=== PATIENT | female | born 1955 | race Caucasian/White ===

== ENCOUNTER 2020-07-21 10:04 | Outpatient (REF) | payer OTHER, SELFPAY | END 2020-07-21 10:05 | disposition home or self-care (01) | LOC: HO.WFDLDS 10:04 | PROVIDERS: PCP Internal Medicine; Visit Provider Internal Medicine | DX: Z20.822 Contact with and (suspected) exposure to COVID-19 (principal) | CPT/HCPCS: 36415; C9803; U0003; U0005 ==

== ENCOUNTER 2024-03-09 13:09 | Outpatient (AMB) | payer OTHER, SELFPAY ==
--- NOTE | 2024-03-09 13:02 | A.OFFPC_ITS ---
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 Required: No Allergies Sulfa (Sulfonamide Antibiotics) Allergy (Unknown, Verified 03/09/24 13:02) Unknown contrast dye Allergy (Mild, Uncoded 03/09/24 13:15) Hives Tobacco use date assessed: 03/09/24 Fall risk assessment: No Falls in past year Last assessed Fall Risk: 03/09/24 Dental Screening Dental Screen Date: 03/09/24 Did you have a dental visit in the last 12 months?: Yes Did you have a dental problem in the last 6 months where you did not have access to dental care?: No Was dental information given to patient?: Patient has dentist HPI HPI Comments History of Present Illness Details 68 year old female with a past medical h istory of lichen sclerosis, hyperlipidemia, PARUL, insomnia, seasonal allergies presenting for follow up CV: On pravastatin 40mg daily. Denies chest pain, dizziness. PARUL: continues cpap. Appt in April-[facility] seasonal allergies: On javi as needed Insomnia: on trazodone, ambien as needed. Had marital therapist. Tried lunesta in the past Sees [facility]d-appt next month. Dr Mayra Hobbs: scheduled Mar 2024 colonoscopy 2020 q3 years [facility]-she will call them she thinks they may have changed it to 5 years. ROS CONSTITUTIONAL: Denies weight loss, fever and chills. HEENT: Denies changes in vision and hearing. RESPIRATORY: Denies SOB and cough. CV: Denies palpitations and CP GI: Denies abdominal pain, nausea, vomiting and diarrhea. : Denies dysuria and urinary frequency. MSK: Denies new myalgia and joint pain. SKIN: Denies rash and pruritus. NEUROLOGICAL: Denies headache PSYCHIATRIC: Denies recent changes in mood. PHYSICAL EXAM: GENERAL: Alert and oriented x 3. NAD EYES: EOMI. Anicteric. HENT: Moist mucous membranes. No scleral icterus. No cervical lymphadenopathy. LUNGS: Clear to auscultation bilaterally. CARDIOVASCULAR: Regular rate and rhythm. No murmur. No JVD. ABDOMEN: Soft, non-tender +bs EXTREMITIES: No edema. Non-tender. SKIN: No rashes or lesions. Warm. NEUROLOGIC: No focal neurological deficits. CN II-XII grossly intact PSYCHIATRIC: Cooperative. Appropriate mood and affect [facility] Medical History Spasm of muscle Seasonal allergies PARUL (obstructive sleep apnea) Lichen sclerosus Insomnia Hyperlipidemia Surgical History H/O laparoscopy Hx of colonoscopy Family History Mother Autoimmune disease Heart attack HTN (hypertension) High cholesterol Cancer of skin Sister Back pain Rheumatoid arthritis Other Spinal stenosis Social History Housing: House Patient Tobacco Use Status: Never used Tobacco e-Cigarette/Vaping Use: Never Used Second Hand Smoke Exposure: No service: No Current occupational status: retired Cognitive needs: No Hearing needs: No Vision needs: No Questionnaire Thrive Questionnaire Date Thrive assessed: 03/05/24 I am a: Patient What is your living situation today?: I have a steady place to live Within the past 12 months, did the food you bought not last and you didn't have the money to get more?: Never true Within the past 12 months, did you worry whether your food would run out before you got money to buy more?: Never true Do you have trouble paying for medicines?: No Do you have trouble getting transportation to medical appointments?: No Do you have trouble paying your heating and electricity bill?: No Do you have trouble taking care of your child, family member or friend?: No Do you have trouble with day-to-day activities such as bathing, preparing meals, shopping, managing finances, etc.?: No Are you currently unemployed and looking for a job?: No Are you interested in more education?: No Please select the resources that you would like help with: None Currently or been in a relationship where the following occur: No concerns reported THRIVE Score: 0 AUDIT C Alcohol Use Questionnaire (AUDIT-C) 1. How often do you have a drink containing alcohol?: 2-3 times a week 2. How many drinks containing alcohol do you have on a typical day when you are drinking?: 1 or 2 3. How often do you have six or more drinks on one occasion?: Never Total Score: 3 STAS-7 AMB Questionnaire STAS-7 Date STAS - 7 assessed: 03/09/24 Feeling nervous, anxious, or on edge: 0 = Not at all Not being able to stop or control worryin = Not at all Worrying too much about different things: 0 = Not at all Trouble relaxin = Not at all Being so restless that it is hard to sit still: 0 = Not at all Feeling afraid as if something awful might happen: 0 = Not at all Source: Developed by Drs. Deshaun Harry, Yamilet Jaeger, Umair De Leon and colleagues, with an educational louis from [employer]. STAS-7 Assessment Billing STAS-7 Assessment Tool: STAS-7 Assessment 39076 Physical exam (Primary Care) Vital Signs: Last Vital Signs Pulse 77 03/09/24 13:19 Resp 12 03/09/24 13:19 BP 132/80 03/09/24 13:19 Pulse Ox 99 03/09/24 13:19 Oxygen Delivery Method Room Air 03/09/24 13:19 BMI result Body Mass Index 21.2 Tobacco/Smoking Status: Tobacco use Status Tobacco use date assessed 03/09/24 03/09/24 13:10 Patient Tobacco Use Status Never used Tobacco 03/09/24 13:10 e-Cigarette/Vaping Use Never Used 03/09/24 13:10 Thrive Assessment: Date of Thrive Assessment Date Thrive assessed 03/05/24 03/09/24 13:10 Currently or been in a relationship where the following occur: No concerns reported Coding Level of Care Code Est Pt Level 4 (43004) Diagnoses Primary insomnia F51.01 Insomnia type: primary PARUL (obstructive sleep apnea) G47.33 Mixed hyperlipidemia E78.2 Hyperlipidemia type: mixed hyperlipidemia Additional Codes STAS-7 Assessment Billing - STAS-7 Assessment Tool: STAS-7 Assessment 69690 ([id number]) Assessment & Plan Assessment & Plan (1) Insomnia: Code(s): G47.00 - Insomnia, unspecified Category: Medical Qualifiers: Insomnia type: primary Qualified Code(s): F51.01 - Primary insomnia Plan: controlled. continue current medications (2) PARUL (obstructive sleep apnea): Code(s): G47.33 - Obstructive sleep apnea (adult) (pediatric) Category: Medical Plan: continue cpap (3) Hyperlipidemia: Code(s): E78.5 - Hyperlipidemia, unspecified Category: Medical Qualifiers: Hyperlipidemia type: mixed hyperlipidemia Qualified Code(s): E78.2 - Mixed hyperlipidemia Plan: continue statin therapy Orders: Orders Complete Blood Count Auto Diff Today E78.5 - Hyperlipidemia, unspecified, G47.00 - Insomnia, unspecified, G47.33 - Obstructive sleep apnea (adult) (pediatric), M81.0 - Age-related osteoporosis without current pathological fracture, Z13.0 - Encounter for screening for diseases of the blood and blood- forming organs and certain disorders involving the immune mechanism, Z13.228 - Encounter for screening for other metabolic disorders Comprehensive Met. Panel Today E78.5 - Hyperlipidemia, unspecified, G47.00 - Insomnia, unspecified, G47.33 - Obstructive sleep apnea (adult) (pediatric), M81.0 - Age-related osteoporosis without current pathological fracture, Z13.0 - Encounter for screening for diseases of the blood and blood-forming organs and certain disorders involving the immune mechanism, Z13.228 - Encounter for screening for other metabolic disorders Lipid Panel Today E78.5 - Hyperlipidemia, unspecified, G47.00 - Insomnia, unspecified, G47.33 - Obstructive sleep apnea (adult) (pediatric), M81.0 - Age- related osteoporosis without current pathological fracture, Z13.0 - Encounter for screening for diseases of the blood and blood-forming organs and certain disorders involving the immune mechanism, Z13.228 - Encounter for screening for other metabolic disorders TSH reflex Free T4 Today E78.5 - Hyperlipidemia, unspecified, G47.00 - Insomnia, unspecified, G47.33 - Obstructive sleep apnea (adult) (pediatric), M81.0 - Age-related osteoporosis without current pathological fracture, Z13.0 - Encounter for screening for diseases of the blood and blood-forming organs and certain disorders involving the immune mechanism, Z13.228 - Encounter for screening for other metabolic disorders
[2024-03-09 13:19] VITALS: BP 132/80; PULSE 77; RESP 12; O2SAT 99; BMI 21.2
== END 2024-03-09 13:51 | disposition home or self-care (01) ==
LOC: HO.HMCFM 13:10
PROVIDERS: PCP Internal Medicine; Visit Provider Internal Medicine
DX: F51.01 Primary insomnia (principal); G47.33 Obstructive sleep apnea (adult) (pediatric); E78.2 Mixed hyperlipidemia

== ENCOUNTER → 2024-03-09 13:09 | Outpatient (BNVA) | payer OTHER, SELFPAY | PROVIDERS: PCP Internal Medicine; Visit Provider Internal Medicine | DX: F51.01 Primary insomnia (principal); G47.33 Obstructive sleep apnea (adult) (pediatric); E78.2 Mixed hyperlipidemia; Z99.89 Dependence on other enabling machines and devices | CPT/HCPCS: 96127 ==

== ENCOUNTER 2024-03-09 14:02 | Outpatient (REF) | payer MEDICARE, OTHER, SELFPAY ==
[2024-03-09 17:51] LABS: MANUAL DIFF FLAG NO
[2024-03-09 18:00] LABS: Basophils Percent Auto 0.7 % (0-2); Eosinophils Absolute Auto 0.2 X10*3/uL (0.0-0.4); Eosinophils Percent Auto 3.5 % (0-4); Hematocrit 38.9 % (37.0-47.0); Hemoglobin 13.4 g/dl (12.0-16.0); Imm Gran Abs Auto 0.02 X10*3/uL (0.00-0.03); Imm Gran Pct Auto 0.3 % (0.0-0.4); Lymphocytes Absolute Auto 1.8 X10*3/uL (1.2-4.9); Lymphocytes Percent Auto 30.3 % (20-40); Mean Corpuscular HGB Conc 34.4 g/dl (31.0-35.0); Mean Corpuscular Hemoglobin 31.5 pg (27.0-33.0); Mean Corpuscular Volume 91.5 fL (80.0-98.0); Mean Platelet Volume 8.4 fL (9.4-12.3); Monocytes Absolute Auto 0.5 X10*3/uL (0.1-1.2); Monocytes Percent Auto 8.7 % (2-11); Neutrophils Absolute Auto 3.4 x10*3/uL (2.0-8.3); Neutrophils Percent Auto 56.5 % (45-73); Platelet Count 255 X10*3/uL (160-400); Red Blood Count 4.25 X10*6/uL (4.20-5.50); White Blood Count 6.1 X10*3/uL (4.8-10.8)
[2024-03-09 18:41] LABS: Alanine Aminotransferase 18 U/L (0-31); Albumin Level 4.8 g/dL (3.5-5.0); Alkaline Phosphatase 76 U/L (39-117); Anion Gap 14 (12-20); Aspartate Amino Transferase 28 U/L (5-31); Bilirubin Total 0.5 mg/dL (0.0-1.0); Blood Urea Nitrogen 18 mg/dL (9-16); Calcium 9.5 mg/dL (8.4-10.2); Carbon Dioxide 24 mmol/L (22-29); Chloride 106 mmol/L (96-108); Cholesterol 215 mg/dL (<200); Estimated Glomerular Filt Rate > 60; Glucose Random 95 mg/dL (60-115); HDL Cholesterol 79 mg/dL (>40); LDL Cholesterol Calculated 122 mg/dL (<100); Potassium 4.2 mmol/L (3.3-5.1); Sodium 140 mmol/L (135-145); Total Protein 7.2 g/dL (6.5-8.0); Triglycerides 74 mg/dL (<150)
[2024-03-09 18:42] LABS: TSH reflex Free T4 1.16 uIU/mL (0.32-4.0)
== END 2024-03-09 14:03 | disposition home or self-care (01) ==
LOC: HO.WFDLDS 14:02
PROVIDERS: Visit Provider Internal Medicine
DX: M81.0 Age-related osteoporosis without current pathological fracture (principal); G47.33 Obstructive sleep apnea (adult) (pediatric); E78.5 Hyperlipidemia, unspecified; G47.00 Insomnia, unspecified; Z13.0 Encounter for screening for diseases of the blood and blood-forming organs and certain disorders involving the immune mechanism; Z13.228 Encounter for screening for other metabolic disorders
CPT/HCPCS: 36415; 80053; 80061; 84443; 85025

== ENCOUNTER 2024-09-20 10:14 | Outpatient (AMB) | payer MEDICARE, OTHER, SELFPAY ==
--- NOTE | 2024-09-20 10:30 | AM.OFFVISMDC ---
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: No Allergies Seasonal Allergies Allergy (Severe, Verified 09/20/24 10:31) congestion Sulfa (Sulfonamide Antibiotics) Allergy (Unknown, Verified 03/09/24 13:02) Unknown contrast dye Allergy (Mild, Uncoded 03/09/24 13:15) Hives Medication List - Last Reconciled 09/20/24 by Petra Haddad PA-C albuterol sulfate 90 mcg/actuation inhalation PRN [collagen peptid PO] nystatin-triamcinolone 100,000-0.1 unit/gram-% topical DAILY pravastatin 40 mg PO BEDTIME trazodone 100 mg PO BEDTIME PRN [vitamin d and k .] zolpidem 10 mg PO BEDTIME PRN HPI AWV HPI Details Patient is a 69-year-old female with a significant past medical history of osteoporosis, insomnia, obstructive sleep apnea, hyperlipidemia, Meniere's disease and colon polyps presenting today for a Medicare wellness visit. HEENT: She does request a referral today to ENT as she has noticed an increase of hearing loss in her left ear. She did follow up with an ENT a few years ago for this and was told that it was likely related to her Meniere's disease. She states ultimately they told her she would probably need hearing aids. She would like a consultation with [facility]. No pain or drainage. CV: Blood pressure today in the office is 116/82. Denies any chest pain or shortness on breath. No palpitations or dizziness in remains very active walking 4 miles a day. She is on pravastatin 40 mg and tolerates this well. Psych: Generally uses trazodone nightly but a couple times a month we will need to use Ambien instead of trazodone. She has been on this regimen for years with her PCP. Requests refill today. 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 Hinds, due this year Bone Density: [facility]- osteoporosis-interested in consultation with an paramedic but not sure that she would do anything for this [facility] Medical History Spasm of muscle Seasonal allergies PARUL (obstructive sleep apnea) Lichen sclerosus Insomnia Hyperlipidemia Surgical History H/O laparoscopy Hx of colonoscopy Family History Mother Autoimmune disease Heart attack HTN (hypertension) High cholesterol Cancer of skin Sister Back pain Rheumatoid arthritis Other Spinal stenosis Social History Housing: House Patient Tobacco Use Status: Never used Tobacco e-Cigarette/Vaping Use: Never Used Second Hand Smoke Exposure: No service: No Current occupational status: retired Cognitive needs: No Hearing needs: No Vision needs: No Questionnaire Medicare Wellness Checkup What [age] 65-71 What gender do you identify with?: female During the past 4 weeks, how much have you been bothered by emotional problems such as feeling anxious, depressed, irritable, sad or downhearted, and blue?: moderately During the past 4 weeks, has your physical & emotional health limited your social activities with family, friends, neighbors, or groups?: not at all During the past 4 weeks, how much bodily pain have you generally had?: moderate pain During the past 4 weeks, was someone available to help you if you needed & wanted help?: yes, as much as I wanted During the past 4 weeks, what was the hardest physical activity you could do for at least 2 minutes?: moderate Can you get to places out of walking distance without help? (For eg., can you travel alone on buses, taxis or drive your car?): Yes Can you go shopping for groceries or clothes without someone's help?: Yes Can you prepare your own meals?: Yes Can you do your housework without help?: Yes Because of any health problems, do you need the help of another person with your personal care needs such as eating, bathing, dressing or getting around the house?: No Can you handle your own money without help?: Yes During the past 4 weeks, how would you rate your health in general?: very good During the past 4 weeks how have things been going for you?: pretty well Are you having difficulties driving your car?: no Do you always fasten your seat belt when you are in a car?: yes, usually During past 4 weeks, have you been bothered by the following: never: Sexual problems?, Trouble eating well?, Teeth or denture problems? and Problems using the telephone?, sometimes: Falling or dizzy when standing up and often: Tiredness or fatigue? Have you fallen 2 or more times in the past year?: No Are you afraid of falling?: No Are you a smoker?: no During the past 4 weeks, how many drinks of wine, beer, or other alcoholic beverages did you have?: 2-5 drinks per week Do you exercise for about 20 minutes 3 or more times a week?: yes, all the time Have you been given information to help with the following?: yes: Keeping track of your medications? and no: Hazards in your house that might hurt you? How often do you have trouble taking medicines the way you have been told to take them?: I always take medicine as prescribed How confident are you that you can control & manage most of your health problems?: very confident What is your race?: White Mini Mental State Exam (MMSE) Orientation What is the (year) (season) (date) (day) (month)?: year (2024), season (spring), date (09/20/24), day and month Where are we (state) (county) (town or city) (hospital) (floor)?: state ([place]), [facility] ([place]), town or city ([place]), hospital/clinic ([facility]) and floor (first) Registration Name of 3 unrelated objects clearly and slowly, then ask patient to repeat all 3 of them. (1st repeat determines score. Make sure they can repeat all three): object 1 (ball ), object 2 (flag) and object 3 (tree) Attention & Calculation (CHOOSE ONE) Ask pt to begin with 100 & count backward by 7. Stop after 5 repeats. If pt cannot ask them to spell the word WORLD backward.: 93, 86, 79, 72 and 65 Recall Ask patient to repeat the 3 items from question #3.: object 1 (ball ) and object 2 (flag) Language Show patient a wristwatch & ask what it is. Repeat for pencil.: watch and pencil Ask the patient to repeat the phrase 'No ifs, ands, or buts' after you.: correct Ask the patient to 'take a piece of paper with their right hand' 'fold paper in half' 'place paper on floor': take paper in right hand, fold paper in half and place paper on floor Print the sentence 'CLOSE YOUR EYES' on a piece. If patient actually closes eyes then score.: followed written direction Give patient a blank piece of paper & ask to write a sentence. Score if it contains a noun & verb.: sentence contains subject and verb Ask patient to copy figure of intersecting pentagons exactly. Score if all 10 angles & 2 intersects are included.: all 10 angles present & 2 are intersected Score Score: 29 Activity of Daily Living Bathing - sponge bath, tub bath or shower: receives no assistance (gets in/out by self, if usual bathing means Dressing - getting clothes from closets & drawers, including inner/outer garments & fasteners.: gets clothes & gets completely dressed without help Toileting - going to the 'toilet room' for urine/bowel elimination & cleaning self/arranging clothes: goes to toilet room, cleans self, arranges clothes without help Transfer: moves in & out of bed and chair without help (may use support object) Continence: controls urination/bowel movements completely by self Feeding: feeds self without help Total Score: 0 Information obtained from: patient Using telephone: independent Traveling: independent Shopping: independent Preparing meals: independent Housework: independent Taking medicine: independent Managing money: independent Physical Exam Vital Signs: Last Vital Signs Pulse 68 09/20/24 10:44 Resp 14 09/20/24 10:44 BP 116/82 09/20/24 10:44 Pulse Ox 98 09/20/24 10:44 Oxygen Delivery Method Room Air 09/20/24 10:44 BMI result Body Mass Index 21.1 Const Orientation/consciousness: patient oriented x3 HEENT Ears: hearing grossly normal bilaterally and TM's normal bilaterally General nose exam: No nasal polyps present Face and sinus: Yes sinuses nontender Mouth: Normal oral and palatal mucosa present Eyes Pupils: Equal, round and reactive pupils present EOM: EOMs intact bilaterally Neck Neck: Yes full ROM and Yes no lymphadenopathy Thyroid: Thyroid normal Chest Chest palpation & inspection: normal inspection of the chest Resp Auscultation: clear to auscultation bilaterally Cardio Rate: regular rate Rhythm: regular rhythm Heart sounds: S1 normal heart sound present and S2 normal heart sound present Peripheral pulses: Peripheral pulses 2+ throughout GI Auscultation: normal bowel sounds Rectal Exam - Female: deferred General: Yes no CVA tenderness Back/Spine/Pelvis Back: no CVA tenderness Skin General skin exam: no rashes or lesions noted Neuro General: patient oriented x3, gait normal, CN's II-XI intact bilaterally and deep tendon reflexes 2+ bilaterally Cranial nerves: Yes Equal, round and reactive pupils present Motor exam (neuro): 5/5 motor strength present throughout Sensory Exam: double simultaneous stimulation for sensation normal Coordination: [id number] test normal and Romberg test negative Extrem General: Yes normal to inspection and Yes full ROM Psych Affect: normal affect Attitude: cooperative Thought process: Normal thought process present Thought content: Normal thought content present Insight: Good insight present (Psych) Judgement: Good judgement present (Psych) Office Procedures EKG Details: EKG today in the office is normal sinus rhythm at a rate of 69 beats per minute with nonspecific STT wave abnormalities. No prior study to compare. EKG interpreted by myself and Dr. Vaughan [id number], Complete Results Reviewed Results Reviewed: Laboratory Tests 03/09/24 14:03 WBC 6.1 RBC 4.25 Hgb 13.4 Hct 38.9 MCV 91.5 MCH 31.5 MCHC 34.4 RDW 13.0 Plt Count 255 Sodium 140 Potassium 4.2 Chloride 106 Carbon Dioxide 24 Anion Gap 14 BUN 18 H Creatinine 0.80 Estimated GFR > 60 Random Glucose 95 Calcium 9.5 Total Bilirubin 0.5 AST 28 ALT 18 Alkaline Phosphatase 76 Total Protein 7.2 Albumin 4.8 Triglycerides 74 Cholesterol 215 H LDL Cholesterol, Calc 122 H HDL Cholesterol 79 TSH 1.16 Assessment & Plan Assessment & Plan (1) Medicare annual wellness visit, initial: Code(s): Z00.00 - Encounter for general adult medical examination without abnormal findings Plan: No concerns or risks of falling. Memory appears intact. She is independent. Declines MOLST form. She has a healthcare proxy, power of attorney general and a living will. (2) Colon polyps: Code(s): K63.5 - Polyp of colon Plan: Referral to [facility] she believes she is due this year. (3) Osteoporosis: Code(s): M81.0 - Age-related osteoporosis without current pathological fracture Plan: Referral to endocrinology for consultation (4) Decreased hearing of left ear: Code(s): H91.92 - Unspecified hearing loss, left ear Plan: Referral to ENT (5) Hyperlipidemia: Code(s): E78.5 - Hyperlipidemia, unspecified Qualifiers: Hyperlipidemia type: mixed hyperlipidemia Qualified Code(s): E78.2 - Mixed hyperlipidemia Plan: Labs ordered. We will follow up pending test results Orders: Orders Complete Blood Count Auto Diff Today E78.2 - Mixed hyperlipidemia, F51.01 - Primary insomnia, H81.09 - Meniere's disease, unspecified ear, H91.92 - Unspecified hearing loss, left ear, K63.5 - Polyp of colon, M81.0 - Age-related osteoporosis without current pathological fracture Comprehensive [place]. Panel Fast Today E78.2 - Mixed hyperlipidemia, F51.01 - Primary insomnia, H81.09 - Meniere's disease, unspecified ear, H91.92 - Unspecified hearing loss, left ear, K63.5 - Polyp of colon, M81.0 - Age-related osteoporosis without current pathological fracture Lipid Panel Today E78.2 - Mixed hyperlipidemia, F51.01 - Primary insomnia, H81.09 - Meniere's disease, unspecified ear, H91.92 - Unspecified hearing loss, left ear, K63.5 - Polyp of colon, M81.0 - Age-related osteoporosis without current pathological fracture TSH reflex Free T4 Today E78.2 - Mixed hyperlipidemia, F51.01 - Primary insomnia, H81.09 - Meniere's disease, unspecified ear, H91.92 - Unspecified hearing loss, left ear, K63.5 - Polyp of colon, M81.0 - Age-related osteoporosis without current pathological fracture Referrals Endocrinology Referral M81.0 - Age-related osteoporosis without current pathological fracture Ear/Nose/Throat Referral H81.09 - Meniere's disease, unspecified ear, H91.92 - Unspecified hearing loss, left ear Gastroenterology Referral K63.5 - Polyp of colon Medications: New trazodone 100 mg (2 x 50 mg) PO BEDTIME PRN 90 tabs 1RF insomnia zolpidem 10 mg PO BEDTIME PRN 30 tabs 1RF insomnia Coding Level of Care Code Medicare First (G0438) Est Pt Level 4 (59849) Diagnoses Medicare annual wellness visit, initial Z00.00 Colon polyps K63.5 Osteoporosis M81.0 Decreased hearing of left ear H91.92 Mixed hyperlipidemia E78.2 Hyperlipidemia type: mixed hyperlipidemia CPT Codes EKG - CPT: [id number], Complete ([id number]) Advance Care Planning Advance Care Planning discussion: Exists, not on file (not ready for molst or dnr) Forms completed: Health Care Proxy and Living will
[2024-09-20 10:44] VITALS: BP 116/82; PULSE 68; RESP 14; O2SAT 98; BMI 21.1
--- OUTSIDE RECORDS SUMMARY | 2024-09-20 11:14 | XMS_ITS | Clinical Summary ---
Author Organization [facility] [address] [place] [address] [place] [address] Phone Care Team Providers Care Security And Compliance Project Manager Name Role Phone Rachel Vaughan MD Primary Care Provider [phone] Medications estradioL (ESTRACE) 0.01 % (0.1 mg/gram) vaginal cream Insert 1 g into the vagina 1 (one) time each day. 10/30/2021 Active nystatin-triamc inolone (MYCOLOG II) ointment Apply a thin layer nightly 30 g 08/30/2024 Active Encounters Date Type Department Care Team Description 08/27/2024 Cable Obstetrics and Gynecology [address] [phone] Lynnette Nunez MD Med Refill from Last 3 Months Surgical History Surgery Date Site/Laterality Comments OTHER SURGICAL HISTORY age 17 PROCEDURE: AL OPEN TX NASAL FX W/CONCOMITANT OPTX FXD SEPTUM OTHER SURGICAL HISTORY age 30 PROCEDURE: AL UNLISTED LAPAROSCOPY PROCEDURE UTERUS; COMMENT: Fertility BAHENA OTHER SURGICAL HISTORY PROCEDURE: ARTHROSCOPY PROCEDURE NEC; COMMENT: Jaw for TMJ BREAST BIOPSY PROCEDURE: AL BX BREAST NEEDLE CORE W/O IMAGING GUIDANCE SPX; COMMENT: normal right OTHER SURGICAL HISTORY PROCEDURE: AL EXCIMER LASER TX 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 BREAST BIOPSY in her 20s PROCEDURE: BX BREAST; PERC NEEDLE CORE W/IMAG GUID; COMMENT: rt bx neg Medical History Medical History Date Comments Allergic rhinitis, cause unspecified DX:Allergic rhinitis, cause unspecified Meniere's disease, unspecified D X:Meniere's disease, unspecified; COMMENT: no vertigo Temporomandibular joint diso rders, unspecified DX:Temporomandibular joint d isorders, unspecified Unspecified tinnitus 10/27/2006 DX:Unspecif ied tinnitus Pain in joint, shoulder region 10/27/2006 D X:Pain in joint, shoulder region Pure hypercholesterolemia 10/27/2006 DX:Pur e hypercholesterolemia Essential hypertension, benign 05/29/08 D X:Essential hypertension, benign Ankle fracture 2013 DX:Ankle fractur e; COMMENT: Right Impaired fasting glucose 04/23/2015 DX:Impa ired fasting glucose Family history of malignant melanoma of skin DX:Family history of maligna nt melanoma of skin; COMMENT: Family history of malignant melanoma of skin father metastasized PARUL on CPAP 08/19/2020 DX:PARUL on CPAP; COMMENT: [facility] Tubulovillous adenoma polyp of colon 08/19/2020 DX:Tubulovillous adenoma polyp of colon Tubulovillous adenoma polyp of colon 08/19/2020 DX:Tubulovillous adenoma polyp of colon Family History Medical History Relation Name Comments Melanoma Brother 1 Diabetes Father Hypertension Father Melanoma Father Other: stomach ulcer Father Heart attack Maternal Grandfather Heart failure Maternal Grandmother Hypertension Mother Other: high cholesterol Mother Other: tkr Mother Cirrhosis Paternal Grandmother Breast cancer Neg Hx Colon cancer Neg Hx Ovarian cancer Neg Hx Pancreatic cancer Neg Hx Prostate cancer Neg Hx Uterine cancer Neg Hx Relation Name Status Comments Brother 1 Brother 2 (Age 64) enlarged h eart, alcohol, allergies, skin cancer Daughter Alive 2 healthy x all ergies - Che , 1 depresssion - Therese Father DM, HTN, stomac h ulcer, hip pain, skin melanoma and SCC, neuropathy- 90 Maternal Grandfather (Age 50's) [place] Maternal Grandmother (Age 50's) CHF Mother ?[place], HTN, Chol, TKR, Phemphgous-bullous Paternal Grandmother CIRRHOS IS-ETOH Sister 1 Alive RA Sister 2 Alive hip pain, osteo porosis?, Breast bipsies Son Alive ADHD [place] Social History Tobacco Use Types Packs/Day Years Used Date Smoking Tobacco: Never Smokeless Tobacco: Never Alcohol Use Standard Drinks/Week Comments Yes 0 (1 standard drink = 0.6 oz pur e alcohol) Comments No Sex and Gender Information Value Date Recorded Sex Assigned at Not on file Legal Sex Female 6:32 AM EST Gender Identity Not on file Sexual Orientation Not on file Obstetrics History Para Term AB IAB SAB Ectopic Multiple Livin g Live Births 2 2 2 2 Date Outcome GA Total Labor Labor//3rd Weight Sex Type Anes PTL Joann A1 A5 Name Clin Term Term Last Filed Vital Signs Vital Sign Reading Time Taken Comments Blood Pressure 108/70 10/14/2023 9:17 AM EDT Pulse 68 10/14/2023 9:17 AM EDT Temperature - - Respiratory Rate - - Oxygen Saturation - - Inhaled Oxygen Concentration - - Weight 52.3 kg (115 lb 6.4 oz) 10/14/2023 9:17 A M EDT Height 162.6 cm (5' 4 ) 10/14/2023 9:17 AM EDT Body Mass Index 19.81 10/14/2023 9:17 AM EDT Plan of Treatment Health Maintenance Due Date Last Done Comments Cervical Cancer Screening: HPV 1978 Pneumococcal Vaccine: 50+ Years (2 of 2 - PCV) 07/04/2014 07/04/2013, 04/13/2001 Zoster Vaccines (2 of 2) 12/29/2018 11/03/2018 Cholesterol Screening (Lipid Panel) 04/17/2022 Colorectal Cancer Screening: Colonoscopy 04/17/2022 Depression Screening 04/17/2022 Falls Risk Assessment 04/17/2022 Hepatitis C Screening 04/17/2022 Hypertension/CHF/CAD Annual BMP Blood Test 04/17/2022 Medicare Annual Wellness Visit 04/17/2022 Osteoporosis Screening (Bone Density Screening) 04/17/2022 Social Influencers of Health Screening 04/17/2022 COVID-19 Vaccine ( season) 2024 04/09/2021, 08/31/2020, 08/03/2020 Influenza Vaccine (Season Ended) 2025 03/03/2022, 01/10/2019, 02/20/2018, Additional history exists Breast Cancer Screening 03/20/2026 03/20/20 24, 03/15/2023, 02/22/2022, Additional history exists DTaP,Tdap,and Td Vaccines (4 - Td or Tdap) 01/14/2032 01/13/2022, 02/16/2012, 07/07/2004 RSV Immunization Adult Patients (1 - 1-dose 75+ series) 2032 HIB Vaccines Aged Out No longer eligi ble based on patient's age to complete this topic HPV Vaccines Aged Out No longer eligi ble based on patient's age to complete this topic Hepatitis A Vaccines Aged Out No long er eligible based on patient's age to complete this topic Hepatitis B Vaccines Aged Out No long er eligible based on patient's age to complete this topic IPV Vaccines Aged Out No longer eligi ble based on patient's age to complete this topic MMR Vaccines Aged Out No longer eligi ble based on patient's age to complete this topic Meningococcal ACWY Vaccine Aged Out N o longer eligible based on patient's age to complete this topic Meningococcal B Vaccine Aged Out No l onger eligible based on patient's age to complete this topic RSV Immunization Patients Under 20 months Aged Out No longer eligible based on patient's age to complete this topic Varicella Vaccines Aged Out No longer eligible based on patient's age to complete this topic Procedures Procedure Name Priority Date/Time Associated Diagnosis Comments MG MAMMO DIGITAL SCREENING W JOSE GUADALUPE BILAT Routine 03/20/2024 8:12 AM EST Encounter for screening mammogram for breast cancer from Last 3 Months or Most Recently Relevant to Health Maintenance Results * MG Mammo Digital Screening w Jose Guadalupe bilat (03/20/2024 8:12 AM EST) Anatomical Region Laterality Modality Breast Bilateral Mammography 03/20/2024 4:38 PM EST Impressions 03/20/2024 4:41 PM EST No mammographic evidence for malignancy. BI-RADS CATEGORY: 1 - NEGATIVE RECOMMENDATION: Screening bilateral mammogram is recommended in 1 year. Mammo Location: [facility], [address] [place] [address], [id number], . -------- FINAL REPORT -------- Dictated By: Mei Culver Dictated Date: 03/20/2024 16:38 ET Assigned Physician: Mei Culver Reviewed and Electronically Signed By: Mei Culver Signed Date: 03/20/2024 16:41 ET Workstation ID: [id number] Transcribed By: Self Edit Transcribed Date: 03/20/2024 16:38 ET Narrative 03/20/2024 4:41 PM EST CLINICAL: 68 years old, Female, routine annual exam. COMPARISON: Prior mammograms, latest from 03/15/2023. ?? TECHNIQUE: Bilateral MLO and CC views were obtained digitally with 3-D mammogram (digital breast tomosynthesis). Computer-aided detection was utilized in evaluation of this exam (CAD). FINDINGS: There is no evidence of suspicious mass or architectural distortion. ??No worrisome calcifications are evident. ??There has been no significant change from prior exam(s). ?? BREAST DENSITY: C - The breasts are heterogeneously dense which may obscure small masses. Procedure Note Mei Culver MD - 03/20/2024 CLINICAL: 68 years old, Female, routine annual exam. COMPARISON: Prior mammograms, latest from 03/15/2023. TECHNIQUE: Bilateral MLO and CC views were obtained digitally with 3-Dmammogram (digital breast tomosynthesis). Computer-aided detection wasutilized in evaluation of this exam (CAD). FINDINGS: There is no evidence of suspicious mass or architectural distortion. Noworrisome calcifications are evident. There has been no significantchange from prior exam(s). BREAST DENSITY: C - The breasts are heterogeneously dense which mayobscure small masses. IMPRESSION: No mammographic evidence for malignancy. BI-RADS CATEGORY: 1 - NEGATIVE RECOMMENDATION: Screening bilateral mammogram is recommended in 1 year. Mammo Location: [facility], [address] [place] [address], [id number], . -------- FINAL REPORT -------- Dictated By: Mei Culver Dictated Date: 03/20/2024 16:38 ET Assigned Physician: Mei Culver Reviewed and Electronically Signed By: Mei Culver Signed Date: 03/20/2024 16:41 ET Workstation ID: [id number] Transcribed By: Self Edit Transcribed Date: 03/20/2024 16:38 ET Rachel Vaughan MD IMG BI PROCEDURES Final Result from Last 3 Months or Most Recently Relevant to Health Maintenance Insurance [facility] Care Teams Security And Compliance Project Manager Relationship Specialty Start Date End Date Rachel Vaughan MD PCP - General Internal Medicine 03/24/15
== END 2024-09-20 11:21 | disposition home or self-care (01) ==
LOC: HO.HMCFM 10:15
PROVIDERS: PCP Internal Medicine; Visit Provider Physician Assistant
DX: Z00.00 Encounter for general adult medical examination without abnormal findings (principal); K63.5 Polyp of colon; M81.0 Age-related osteoporosis without current pathological fracture; H91.92 Unspecified hearing loss, left ear; E78.2 Mixed hyperlipidemia

== ENCOUNTER → 2024-09-20 10:14 | Outpatient (BNVA) | payer MEDICARE, OTHER, SELFPAY | PROVIDERS: PCP Internal Medicine; Visit Provider Physician Assistant | DX: Z00.00 Encounter for general adult medical examination without abnormal findings (principal); K63.5 Polyp of colon; M81.0 Age-related osteoporosis without current pathological fracture; H91.92 Unspecified hearing loss, left ear; E78.2 Mixed hyperlipidemia | CPT/HCPCS: 93005; 99212 ==

== ENCOUNTER 2024-10-02 12:57 | Outpatient (AMB) | payer MEDICARE, OTHER, SELFPAY ==
--- OUTSIDE RECORDS SUMMARY | 2024-10-02 13:01 | XMS_ITS | Clinical Summary ---
Author Organization [address] Address [address] [place] [phone] Phone Care Team Providers Care Labor Relations Supervisor Name Role Phone Rachel Vaughan MD Primary Care Provider [phone] Allergies Active Allergy Reactions Criticality Noted Date Comments Iodinated Contrast Media 09/24/2024 Other High 09/24/2024 Seasonal, congestion Sulfa (Sulfonamide Antibiotics) Anaphylaxis High 07/25/2006 Medications estradioL (ESTRACE) 0.01 % (0.1 mg/gram) vaginal cream Insert 1 g into the vagina 1 (one) time each day. 2 Active nystatin-triamc inolone (MYCOLOG II) ointment Apply a thin layer nightly 30 g 5 Active albuterol HFA (PROAIR HFA ; PROVENTIL HFA ; VENTOLIN HFA) 90 mcg/actuation inhaler INHALE 2 PUFFS EVERY 4 HOURS NEEDED FOR WHEEZING/SHORTNE SS OF BREATH Active nystatin (MYCOSTATIN) ointment Apply 1 Application topically 1 (one) time each day. 2 Active pravastatin (PRAVACHOL) 40 mg tablet Take 1 tablet (40 mg total) by mouth at bedtime. at bedtime. Active traZODone (DESYREL) 50 mg tablet 2 tablets (100 mg total) at bedtime. 0 Active zolpidem (Ambien) 10 mg tablet Take 1 tablet (10 mg total) by mouth at bedtime. Max Daily Amount: 10 mg 3 Active Encounters Date Type Department Care Team Description 09/21/2024 Telephone Gastroenterology - [address] [facility] [address] [place] [address] Sherif Ortiz MD special procedure 08/27/2024 Telephone Obstetrics and Gynecology [address] [place] [id number] Lynnette Nunez MD Med Refill from Last 3 Months Surgical History Surgery Date Site/Laterality Comments OTHER SURGICAL HISTORY age 17 PROCEDURE: NE OPEN TX NASAL FX W/CONCOMITANT OPTX FXD SEPTUM OTHER SURGICAL HISTORY age 30 PROCEDURE: NE UNLISTED LAPAROSCOPY PROCEDURE UTERUS; COMMENT: Fertility BAHENA OTHER SURGICAL HISTORY PROCEDURE: ARTHROSCOPY PROCEDURE NEC; COMMENT: Jaw for TMJ BREAST BIOPSY PROCEDURE: NE BX BREAST NEEDLE CORE W/O IMAGING GUIDANCE SPX; COMMENT: normal right OTHER SURGICAL HISTORY PROCEDURE: NE EXCIMER LASER TX PSORIASIS TOT AREA <250 [...] skin father metastasized PARUL on CPAP 08/19/2020 DX:PRAUL on CPAP; COMMENT: [facility] Tubulovillous adenoma polyp of colon 08/19/2020 [...] SCC, neuropathy- 90 Maternal Grandfather (Age 50's) [place] Maternal Grandmother (Age 50's) CHF Mother ?[place], HTN, Chol, TKR, Phemphgous-bullous Paternal Grandmother CIRRHOS [...] 2 2 Date Outcome GA Total Labor Labor/2nd/3rd Weight Sex Type Anes PTL Joann A1 [...] of Health Screening 04/17/2022 COVID-19 Vaccine ( - season) 2024 04/09/2021, 08/31/2020, 08/03/2020 Influenza Vaccine [...] is recommended in 1 year. Mammo Location: [facility], [address] [place] [address], [facility], . -------- FINAL REPORT -------- Dictated By: Mei Culver Dictated Date: 03/20/2024 16:38 ET Assigned Physician: Mei Culver Reviewed and Electronically Signed By: Mei Culver Signed Date: 03/20/2024 16:41 ET Workstation ID: [id number] Transcribed By: Self Edit Transcribed Date: 03/20/2024 [...] is recommended in 1 year. Mammo Location: [facility], [address] [place] [address], [id number], . -------- FINAL REPORT -------- Dictated By: Mei Culver Dictated Date: 03/20/2024 16:38 ET Assigned Physician: Mei Culver Reviewed and Electronically Signed By: Mei Culver Signed Date: 03/20/2024 16:41 ET Workstation ID: [id number] Transcribed By: Self Edit Transcribed Date: 03/20/2024 16:38 ET Rachel Vaughan MD IMG BI PROCEDURES Final Result from Last 3 Months or Most Recently Relevant to Health Maintenance Insurance MEDICARE [facility] Care Teams Labor Relations Supervisor Relationship Specialty Start Date End Date Rachel Vaughan MD [address] [place] [id number] PCP - General Internal Medicine 03/24/15
--- NOTE | 2024-10-02 13:08 | MHC.OFFVIS ---
Vital Signs 10/02/24 13:11 Height 5 ft 2.37 in Weight 119 lb 0.794 oz BMI 21.5 BP 124/76 Blood Pressure Location Rt brachial Position Sitting Pulse 76 Pulse Source Pulse Oximeter Pulse Oximetry (%) 98 Oxygen Delivery Method Room Air Intake Visit Reasons: Age-related osteoporosis without current patholog Intake Note: New patient internally referred by PCP Petra Haddad for Age-related Osteoporosis. Hot Knife Foxing Cutter Required: No Accompanied by: Self / Same As Patient Allergies Seasonal Allergies Allergy (Severe, Verified 10/02/24 13:12) congestion Sulfa (Sulfonamide Antibiotics) Allergy (Unknown, Verified 10/02/24 13:12) Unknown contrast dye Allergy (Mild, Uncoded 10/02/24 13:12) Hives HPI Comments Details: The patient is a 69-year-old female presenting with osteoporosis for evaluation and management. She reports a history of osteoporosis diagnosed after a bone density scan two years ago and has not pursued specialty care or treatment for this condition. She denies any typical fragile fractures, but there is a history of a spiral ankle fracture in 2014 after a fall. Additionally, she experienced undiagnosed rib fractures at the age of 36, likely due to a significant cough and lifting resultant from caring for her children. She has altered her dietary intake to include sources of calcium like broccoli, cheese, and figs but stopped calcium supplements due to constipation. She currently takes an unspecified dose of vitamin D. The family history reveals osteoporosis in one sister, and there is no history of hip fractures in relatives. She reports no smoking or excessive alcohol consumption, and there are no reports of weight-bearing exercises or past bone-targeted medications. First diagnosed in 2 yrs ago .Never saw specialist in past Not Received treatment in the past history of pathologic fracture of ankle in 2014 after fall and fx at age 36 fx ribs after coughing or lifting or ONJ. Has several servings of dietary calcium per day in the form of broccoli,milk , cheese . Not Takes Calcium supplement. Takes ? IU of Vitamin D daily. Denies ever using PPI, anticoagulant, antiepileptic or glucocorticoid medication. Does weight bearing exercise few days per week in the form of weights , lungers . 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 UTD on dental cleanings and sees dentist every 6 months. No planned upcoming dental work or extractions. No smoking hx or heavy ETOH abuse DXA dated 08/10/22: T-score in the femoral neck -2.5 Labs: [facility] Medical History (Updated 10/02/24 @ 13:14 by MAHENDRA Sidhu) Spasm of muscle Seasonal allergies PARUL (obstructive sleep apnea) Lichen sclerosus Insomnia Hyperlipidemia Surgical History History of surgery Hx of tooth extraction History of hysterosalpingogram Hx of left breast biopsy History of nasal surgery H/O laparoscopy Hx of colonoscopy Family History Mother Autoimmune disease Heart attack HTN (hypertension) High cholesterol Cancer of skin Sister Back pain Rheumatoid arthritis Other Spinal stenosis Social History Housing: House Patient Tobacco Use Status: Never used Tobacco e-Cigarette/Vaping Use: Never Used Second Hand Smoke Exposure: No service: No Current occupational status: retired Cognitive needs: No Hearing needs: No Vision needs: No Physical Exam Vital Signs: Last Vital Signs Pulse 76 10/02/24 13:11 BP 124/76 10/02/24 13:11 Pulse Ox 98 10/02/24 13:11 Oxygen Delivery Method Room Air 10/02/24 13:11 BMI result Body Mass Index 21.5 There are no Cushingoid features. Absence of blue sclera. Absence of kyphosis. Thyroid gland is of nl size and weighs 15 gms. There are no thyroid nodules palpated. Lungs CTA. Heart S1 S2 Reg R/R Abdominal exam benign. Muscle strength 5/5 . Examination of spine reveals absence of tenderness on palpation Assessment & Plan Assessment & Plan (1) Osteoporosis: Code(s): M81.0 - Age-related osteoporosis without current pathological fracture Category: Medical Plan: This is a 69-year-old white female with a history of borderline osteoporosis. Partial secondary workup has been performed Plan is complete the secondary workup by checking a 25 hydroxy vitamin-D, urine immunofixation, 24 hour urine for calcium and creatinine, phosphorus level. Will ensure 1200 mg of calcium and 2000 IU of vitamin D3. Assuming secondary workup was negative, can repeat DEXA bone density ideally with TBS ( trabeulatr bone score) as well to determine whether pharmacologic treatment as necessary 1. Osteoporosis The patient has established osteoporosis, previously diagnosed with a bone density exam. Although untreated, the osteoporosis remains stable without recent fragility fractures. A family history complements this diagnosis. Discussion emphasized re-evaluation of calcium and vitamin D management, including dietary enhancements and reassessing vitamin D adequacy with supplementation. Comprehensive laboratory evaluation is planned to investigate potential secondary causes of osteoporosis; it includes 24-hour urine to better elucidate urinary calcium excretion and potential endocrinopathy. Follow-up planning includes reevaluating bone density and considering advanced diagnostics like the trabecular bone score to improve treatment precision. No pharmacotherapy started at this time due to stable bone health and awaiting further diagnostic clarity. The patient showed understanding and agreement with the approach and will return in three to four months for reassessment and further management discussions. We thoroughly discussed the patient's osteoporosis management, emphasizing lifestyle interventions, importance of dietary and vitamin D sufficiency, and rationalizing further diagnostics. I reassured the patient these are preventive discussions rather than urgent treatment needs as her osteoporosis seems stable without recent fractures. I emphasized the bone density's role and trabecular bone score for a refined understanding, potentially informing treatment, notably in cases like hers with borderline risk. All decisions pivot on the obtained laboratory and diagnostic insights [id number] visit. - Maintain a diet rich in calcium, aiming for 1200 mg daily. - Ensure adequate intake of vitamin D, aiming for approximately 2000 IU daily. - Perform weight-bearing exercises regularly as discussed. - Follow up in three to four months for further assessment. - Complete the blood work and 24-hour urine collection at the advised center. - Ensure household safety measures to prevent falls, like adequate lighting. - Consider re-evaluating bone density, particularly at advanced diagnostic centers, and discuss options at the next appointment. The patient had an opportunity to ask questions regarding treatment plan. The patient expressed understanding and agreement with the above treatment plan. Patient was informed and verbally consented to the use of an ambient scribe for clinic note documentation during this visit. Orders: Orders Phosphorus Today M81.0 - Age-related osteoporosis without current pathological fracture Vitamin D 25-OH Total Today M81.0 - Age-related osteoporosis without current pathological fracture Calcium, 24 Hr Ur Today M81.0 - Age-related osteoporosis without current pathological fracture Creatinine, 24 Hr Group Today M81.0 - Age-related osteoporosis without current pathological fracture Immunofixation, Random Urine Today M81.0 - Age-related osteoporosis without current pathological fracture Coding Level of Care Code New Pt Level 4 (60915) Diagnoses Osteoporosis M81.0
[2024-10-02 13:11] VITALS: BP 124/76; PULSE 76; O2SAT 98; BMI 21.5
== END 2024-10-02 14:03 | disposition home or self-care (01) ==
LOC: HO.ENCR 12:58
PROVIDERS: PCP Internal Medicine; Visit Provider Internal Medicine Endocrinology, Diabetes & Metabolism
DX: M81.0 Age-related osteoporosis without current pathological fracture (principal)
CPT/HCPCS: 99204

== ENCOUNTER → 2024-10-02 12:57 | Outpatient (BNVA) | payer MEDICARE, OTHER, SELFPAY | PROVIDERS: PCP Internal Medicine; Visit Provider Internal Medicine Endocrinology, Diabetes & Metabolism | DX: M81.0 Age-related osteoporosis without current pathological fracture (principal) | CPT/HCPCS: 99202 ==

== ENCOUNTER 2024-10-09 09:50 | Outpatient (REF) | payer MEDICARE, OTHER, SELFPAY ==
--- OUTSIDE RECORDS SUMMARY | 2024-10-09 11:02 | XMS_ITS | Clinical Summary ---
Author Organization [address] Address [address] [place] [phone] Phone Care Team Providers Care Production Corrugator Name Role Phone Rachel Vaughan MD Primary Care Provider [phone] Allergies Active Allergy Reactions Criticality Noted Date [...] 09/21/2024 Telephone Gastroenterology - [address] [place] [address] Sherif Ortiz MD special procedure 08/27/2024 Telephone Obstetrics and Gynecology [address] [place] [phone] Lynnette Nunez MD Med Refill from Last 3 Months Surgical History Surgery Date Site/Laterality Comments OTHER SURGICAL HISTORY age 17 PROCEDURE: TN OPEN TX NASAL FX W/CONCOMITANT OPTX FXD SEPTUM OTHER SURGICAL HISTORY age 30 PROCEDURE: TN UNLISTED LAPAROSCOPY PROCEDURE UTERUS; COMMENT: Fertility BAHENA OTHER SURGICAL HISTORY PROCEDURE: ARTHROSCOPY PROCEDURE NEC; COMMENT: Jaw for TMJ BREAST BIOPSY PROCEDURE: TN BX BREAST NEEDLE CORE W/O IMAGING GUIDANCE SPX; COMMENT: normal right OTHER SURGICAL HISTORY PROCEDURE: TN EXCIMER LASER TX PSORIASIS TOT AREA <250 [...] SCC, neuropathy- 90 Maternal Grandfather (Age 50's) [place] Maternal Grandmother (Age 50's) CHF Mother ?[place], HTN, Chol, TKR, Phemphgous-bullous Paternal Grandmother CIRRHOS [...] is recommended in 1 year. Mammo Location: [facility], [address] [place] [address], [facility], . -------- FINAL REPORT -------- Dictated By: Mei Culver Dictated Date: 03/20/2024 16:38 ET Assigned Physician: Mei Culver Reviewed and Electronically Signed By: Mei Culver Signed Date: 03/20/2024 16:41 ET Workstation ID: [id number] Transcribed By: Self Edit Transcribed Date: 03/20/2024 [...] is recommended in 1 year. Mammo Location: [facility], [address] [place] [address], [address], . -------- FINAL REPORT -------- Dictated By: Mei Culver Dictated Date: 03/20/2024 16:38 ET Assigned Physician: Mei Culver Reviewed and Electronically Signed By: Mei Culver Signed Date: 03/20/2024 16:41 ET Workstation ID: [id number] Transcribed By: Self Edit Transcribed Date: 03/20/2024 16:38 ET Rachel Vaughan MD IMG BI PROCEDURES Final Result from Last 3 Months or Most Recently Relevant to Health Maintenance Insurance MEDICARE [facility] Care Teams Production Corrugator Relationship Specialty Start Date End Date Rachel Vaughan MD [address] [place] [phone] PCP - General Internal Medicine 03/24/15
[2024-10-09 11:51] LABS: MANUAL DIFF FLAG NO
[2024-10-09 12:03] LABS: Basophils Percent Auto 0.6 % (0-2); Eosinophils Absolute Auto 0.2 X10*3/uL (0.0-0.4); Hematocrit 39.1 % (37.0-47.0); Hemoglobin 13.1 g/dl (12.0-16.0); Imm Gran Abs Auto 0.02 X10*3/uL (0.00-0.03); Imm Gran Pct Auto 0.4 % (0.0-0.4); Lymphocytes Absolute Auto 1.4 X10*3/uL (1.2-4.9); Lymphocytes Percent Auto 27.8 % (20-40); Mean Corpuscular HGB Conc 33.5 g/dl (31.0-35.0); Mean Corpuscular Hemoglobin 29.6 pg (27.0-33.0); Mean Corpuscular Volume 88.3 fL (80.0-98.0); Mean Platelet Volume 8.5 fL (9.4-12.3); Monocytes Absolute Auto 0.4 X10*3/uL (0.1-1.2); Monocytes Percent Auto 8.1 % (2-11); Neutrophils Percent Auto 60.1 % (45-73); Platelet Count 235 X10*3/uL (160-400); Red Blood Count 4.43 X10*6/uL (4.20-5.50); Red Cell Distribution Width 12.7 % (11.0-16.0)
[2024-10-09 12:32] LABS: TSH reflex Free T4 1.04 uIU/mL (0.32-4.0)
[2024-10-09 12:40] LABS: Alanine Aminotransferase 14 U/L (0-31); Albumin Level 4.6 g/dL (3.5-5.0); Alkaline Phosphatase 71 U/L (39-117); Anion Gap 10 (12-20); Aspartate Amino Transferase 24 U/L (5-31); Bilirubin Total 0.5 mg/dL (0.0-1.0); Blood Urea Nitrogen 17 mg/dL (9-16); Calcium 9.3 mg/dL (8.4-10.2); Carbon Dioxide 26 mmol/L (22-29); Chloride 109 mmol/L (96-108); Cholesterol 202 mg/dL (<200); Estimated Glomerular Filt Rate > 60; Glucose Fasting 94 mg/dL (60-99); HDL Cholesterol 60 mg/dL (>40); LDL Cholesterol Calculated 125 mg/dL (<100); Phosphorus 3.7 mg/dL (2.7-4.5); Potassium 4.1 mmol/L (3.3-5.1); Sodium 141 mmol/L (135-145); Total Protein 6.7 g/dL (6.5-8.0); Triglycerides 89 mg/dL (<150); Vitamin D 25-OH Total 86.1 ng/mL (>30)
== END 2024-10-09 09:51 | disposition home or self-care (01) ==
LOC: HO.WFDLDS 09:50
PROVIDERS: Referring Provider Internal Medicine Endocrinology, Diabetes & Metabolism; Visit Provider Physician Assistant
DX: M81.0 Age-related osteoporosis without current pathological fracture (principal); H81.09 Meniere's disease, unspecified ear; H91.92 Unspecified hearing loss, left ear; K63.5 Polyp of colon; F51.01 Primary insomnia; E78.2 Mixed hyperlipidemia
CPT/HCPCS: 36415; 80053; 80061; 82306; 84100; 84443; 85025; 86335

== ENCOUNTER 2024-10-11 14:37 | Outpatient (REF) | payer MEDICARE, OTHER, SELFPAY ==
[2024-10-11 15:58] LABS: Creatinine, mg/dL 72.23
--- OUTSIDE RECORDS SUMMARY | 2024-10-11 17:15 | XMS_ITS | Clinical Summary ---
Author Organization [address] Address [address] [place] [phone] Phone Care Team Providers Care Germination Worker Name Role Phone Rachel Vaughan MD Primary Care Provider [phone] Allergies Active Allergy Reactions Criticality Noted Date [...] 09/21/2024 Telephone Gastroenterology - [address] [facility] [address] [place] [address] Sherif Ortiz MD special procedure 08/27/2024 Telephone Obstetrics and Gynecology [address] [place] [phone] Lynnette Nunez MD Med Refill from Last 3 Months Surgical History Surgery Date Site/Laterality Comments OTHER SURGICAL HISTORY age 17 PROCEDURE: MN OPEN TX NASAL FX W/CONCOMITANT OPTX FXD SEPTUM OTHER SURGICAL HISTORY age 30 PROCEDURE: MN UNLISTED LAPAROSCOPY PROCEDURE UTERUS; COMMENT: Fertility BAHENA OTHER SURGICAL HISTORY PROCEDURE: ARTHROSCOPY PROCEDURE NEC; COMMENT: Jaw for TMJ BREAST BIOPSY PROCEDURE: MN BX BREAST NEEDLE CORE W/O IMAGING GUIDANCE SPX; COMMENT: normal right OTHER SURGICAL HISTORY PROCEDURE: MN EXCIMER LASER TX PSORIASIS TOT AREA <250 [...] SCC, neuropathy- 90 Maternal Grandfather (Age 50's) [place] Maternal Grandmother (Age 50's) CHF Mother ?[place], HTN, Chol, TKR, Phemphgous-bullous Paternal Grandmother CIRRHOS [...] is recommended in 1 year. Mammo Location: [facility], [address] [place] [address], [facility], . -------- FINAL REPORT -------- Dictated By: Mei Culver Dictated Date: 03/20/2024 16:38 ET Assigned Physician: Mei Culver Reviewed and Electronically Signed By: Mei Culver Signed Date: 03/20/2024 16:41 ET Workstation ID: [id number] Transcribed By: Self Edit Transcribed Date: 03/20/2024 [...] is recommended in 1 year. Mammo Location: [facility], [address] [place] [address], [address], . -------- FINAL REPORT -------- Dictated By: Mei Culver Dictated Date: 03/20/2024 16:38 ET Assigned Physician: Mei Culver Reviewed and Electronically Signed By: Mei Culver Signed Date: 03/20/2024 16:41 ET Workstation ID: [id number] Transcribed By: Self Edit Transcribed Date: 03/20/2024 16:38 ET Rachel Vaughan MD IMG BI PROCEDURES Final Result from Last 3 Months or Most Recently Relevant to Health Maintenance [facility] Care Teams Germination Worker Relationship Specialty Start Date End Date Rachel Vaughan MD [address] [place] [phone] PCP - General Internal Medicine 03/24/15
[2024-10-11 18:17] LABS: Creatinine, 24Hr Urine 1.2 G/Day (1.0-2.0); Total Volume 24 Hour Urine 1600 mL
[2024-10-25 10:52] LABS: Calcium, 24 Hr Urine 259 mg/24 h; Calcium/Creatinine Ratio 225 mg/g creat (30-275); Creatinine 24Hr Urine 1.15 g/24 h (0.50-2.15)
== END 2024-10-11 14:38 | disposition home or self-care (01) ==
LOC: HO.LNP 14:37
PROVIDERS: Visit Provider Internal Medicine Endocrinology, Diabetes & Metabolism
DX: M81.0 Age-related osteoporosis without current pathological fracture (principal)
CPT/HCPCS: 82340; 82570

== ENCOUNTER 2025-01-28 10:23 | Outpatient (AMB) | payer MEDICARE, OTHER, SELFPAY ==
--- OUTSIDE RECORDS SUMMARY | 2025-01-25 08:00 | XMS_ITS | Encounter Summary ---
Author Organization [facility]ly [facility] Address [address] [place] [address] Care Team Providers Care Physics Technician Name Role Phone Rachel Vaughan MD Primary Care Provider Encounter Details Date Type Department Care Team ([facility] st Contact Info) Description 01/25/2025 8:00 AM EDT Clinical Support [facility] [address], [place] [phone] Mai Cassidy Au.D [address] [place] [phone] Social History Tobacco Use Types Packs/Day Years Used Date Smoking Tobacco: Never Passive Smoke Exposure: Never Smokeless Tobacco: Never Alcohol Use Standard Drinks/Week Comments Yes 0 (1 standard drink = 0.6 oz pur e alcohol) Comments Unknown Sex and Gender Information Value Date Recorded Sex Assigned at Not on file Legal Sex Female 2:12 PM EDT Gender Identity Not on file Sexual Orientation Not on file documented as of this encounter Progress Notes * Reba Crane - 01/25/2025 8:00 AM EDT Images from the original note were not included. Encounter Date: 01/25/2025 Patient: Leidy Perez : 1955 Hearing Aid Follow-Up Switched from medium open to small vented and changed the acoustic parameters. Ran feedback test again. Boosted gain to 100%. She felt it was comfortable and she could hear a bit better with the closed dome. She will try this and return in a couple weeks. Will swap out the included domes if she prefers the closed dome. Reba Crane documented in this encounter Plan of Treatment Upcoming Encounters Date Type Department Care Team (Late st Contact Info) Description 02/13/2025 11:30 AM EDT Clinical Support [facility] [address], [place] [phone] Mai Cassidy Au.D [address] [place] [phone] documented as of this encounter Visit Diagnoses Not on filedocumented in this encounter Care Teams Physics Technician Relationship Specialty Start Date End Date Rachel Vaughan MD [address] [place] [phone] PCP - General Internal Medicine 11/19/24 documented as of this encounter
--- NOTE | 2025-01-28 10:27 | A.OFFVIS_ITS ---
Vital Signs 01/28/25 10:31 Height 5 ft 2.3 in Weight 119 lb 4.321 oz BMI 21.6 BP 122/76 Blood Pressure Location Rt brachial Position Sitting Pulse 77 Pulse Source Pulse Oximeter Pulse Oximetry (%) 98 Oxygen Delivery Method Room Air Intake Visit Reasons: Osteoporosis Intake Note: Patient present today for Osteoporosis follow up. 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: No Accompanied by: Self / Same As Patient Allergies Seasonal Allergies Allergy (Severe, Verified 01/28/25 10:34) congestion Sulfa (Sulfonamide Antibiotics) Allergy (Unknown, Verified 01/28/25 10:34) Unknown contrast dye Allergy (Mild, Uncoded 01/28/25 10:34) Hives Medication List - Last Reconciled 01/28/25 by Sydney Davila RN albuterol sulfate 90 mcg/actuation inhalation PRN calcium carbonate (Calcium 600) 600 mg PO DAILY [collagen peptid PO] magnesium 200 mg PO DAILY nystatin-triamcinolone 100,000-0.1 unit/gram-% topical DAILY pravastatin 40 mg PO BEDTIME trazodone 100 mg (2 x 50 mg) PO BEDTIME PRN [vitamin d and k .] zolpidem 10 mg PO BEDTIME PRN HPI Comments Details: The patient is a 69-year-old female presenting with osteoporosis for evaluation and management. She reports a history of osteoporosis diagnosed after a bone density scan two years ago and has not pursued specialty care or treatment for this condition. She denies any typical fragile fractures, but there is a history of a spiral ankle fracture in 2014 after a fall. Additionally, she experienced undiagnosed rib fractures at the age of 36, likely due to a significant cough and lifting resultant from caring for her children. She has altered her dietary intake to include sources of calcium like broccoli, cheese, and figs but stopped calcium supplements due to constipation. She currently takes an unspecified dose of vitamin D. The family history reveals osteoporosis in one sister, and there is no history of hip fractures in relatives. She reports no smoking or excessive alcohol consumption, and there are no reports of weight-bearing exercises or past bone-targeted medications. First diagnosed in 2 yrs ago .Never saw specialist in past Not Received treatment in the past history of pathologic fracture of ankle in 2015 after fall and fx at age 36 fx ribs after coughing or lifting or ONJ. Has several servings of dietary calcium per day in the form of broccoli,milk , cheese . Not Takes Calcium supplement. Takes ? IU of Vitamin D daily. Denies ever using PPI, anticoagulant, antiepileptic or glucocorticoid medication. Does weight bearing exercise few days per week in the form of weights , lungers . 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 UTD on dental cleanings and sees dentist every 6 months. No planned upcoming dental work or extractions. No smoking hx or heavy ETOH abuse DXA dated 08/10/22: T-score in the femoral neck -2.5 Labs: [facility] Medical History (Updated 10/15/24 @ 14:56 by Rachel Vaughan MD) Spasm of muscle Seasonal allergies PARUL (obstructive sleep apnea) Lichen sclerosus Insomnia Hyperlipidemia Surgical History History of surgery Hx of tooth extraction History of hysterosalpingogram Hx of left breast biopsy History of nasal surgery H/O laparoscopy Hx of colonoscopy Family History Mother Autoimmune disease Heart attack HTN (hypertension) High cholesterol Cancer of skin Sister Back pain Rheumatoid arthritis Other Spinal stenosis Social History Housing: House Patient Tobacco Use Status: Never used Tobacco e-Cigarette/Vaping Use: Never Used Second Hand Smoke Exposure: No service: No Current occupational status: retired Cognitive needs: No Hearing needs: No Vision needs: No Assessment & Plan Assessment & Plan (1) Osteoporosis: Code(s): M81.0 - Age-related osteoporosis without current pathological fracture Category: Medical Plan: This is a 69-year-old white female with a history of borderline osteoporosis. secondary workup has been performed and was negative. Repeat DEXA showed low bone mass and stability of the bone density Plan is continue calcium and vitamin-D supplementation. Patient can returned to the care of her primary care provider who can recheck a DEXA bone density in 2 years' time. If the bone density declines into the osteoporotic range, patient returned back to endocrinology and be started on anti resorptive agent like an o ral bisphosphonate or this could be initiated by the patient's primary care provider Coding Level of Care Code Est Pt Level 3 (55740) Diagnoses Osteoporosis M81.0
[2025-01-28 10:31] VITALS: BP 122/76; PULSE 77; O2SAT 98; BMI 21.6
--- OUTSIDE RECORDS SUMMARY | 2025-01-28 12:42 | XMS_ITS | Clinical Summary ---
Author Organization [address] Address [address] [place] [phone] Phone Care Team Providers Care Sheet Combining Operator Name Role Phone Rachel Vaughan MD Primary Care Provider [phone] Allergies Active Allergy Reactions Criticality Noted Date [...] Max Daily Amount: 10 mg 3 Active Surgical History Surgery Date Site/Laterality Comments OTHER SURGICAL HISTORY age 17 PROCEDURE: [place] OPEN TX NASAL FX W/CONCOMITANT OPTX FXD SEPTUM OTHER SURGICAL HISTORY age 30 PROCEDURE: [place] UNLISTED LAPAROSCOPY PROCEDURE UTERUS; COMMENT: Fertility BAHENA OTHER SURGICAL HISTORY PROCEDURE: ARTHROSCOPY PROCEDURE NEC; COMMENT: Jaw for TMJ BREAST BIOPSY PROCEDURE: LA BX BREAST NEEDLE CORE W/O IMAGING GUIDANCE SPX; COMMENT: normal right OTHER SURGICAL HISTORY PROCEDURE: [place] EXCIMER LASER TX PSORIASIS TOT AREA <250 [...] SCC, neuropathy- 90 Maternal Grandfather (Age 50's) [place] Maternal Grandmother (Age 50's) CHF Mother ?[place], HTN, Chol, TKR, Phemphgous-bullous Paternal Grandmother CIRRHOS [...] Panel) 04/17/2022 Colorectal Cancer Screening: Colonoscopy 04/17/2022 Falls Risk Assessment 04/17/2022 Hepatitis C Screening 04/17/2022 Hypertension/CHF/CAD Annual BMP Blood Test 04/17/2022 Medicare Annual Wellness Visit 04/17/2022 Osteoporosis Screening (Bone Density Screening) 04/17/2022 Social Influencers of Health Screening 04/17/2022 Depression Screening 05/09/2024 COVID-19 Vaccine ( season) 2025 04/09/2021, 08/31/2020, 08/03/2020 Influenza Vaccine (#1) 2025 , 01/10/2019, 02/20/2018, Additional history exists Breast Cancer [...] is recommended in 1 year. Mammo Location: [facility], [address] [place] [address], [address], . -------- FINAL REPORT -------- Dictated By: Mei Culvre Dictated Date: 03/20/2024 16:38 ET Assigned Physician: Mei Culver Reviewed and Electronically Signed By: Mei Culver Signed Date: 03/20/2024 16:41 ET Workstation ID: [id number] Transcribed By: Self Edit Transcribed Date: 03/20/2024 [...] evidence of suspicious mass or architectural distortion. No worrisome calcifications are evident. There has been no significant change from prior exam(s). BREAST DENSITY: C - [...] is recommended in 1 year. Mammo Location: [facility], [address] [place] [address], [address], . -------- FINAL REPORT -------- Dictated By: Mei Culver Dictated Date: 03/20/2024 16:38 ET Assigned Physician: Mei Culver Reviewed and Electronically Signed By: Mei Culver Signed Date: 03/20/2024 16:41 ET Workstation ID: [id number] Transcribed By: Self Edit Transcribed Date: 03/20/2024 16:38 ET Rachel Vaughan MD IMG BI PROCEDURES Final Result from Last 3 Months or Most Recently Relevant to Health Maintenance Insurance MEDICARE [facility] Care Teams Sheet Combining Operator Relationship Specialty Start Date End Date Rachel Vaughan MD [address] [place] [phone] PCP - General Internal Medicine 03/24/15
--- OUTSIDE RECORDS SUMMARY | 2025-01-28 12:42 | XMS_ITS ---
Author Name [facility] Organization Unknown History of Medication Use Medication Directions Dispensed Refills Start Date End Date Stat us No known medications No known medications active pravastatin (PRAVACHOL) 40 MG tablet Take 40 mg by mouth nightly. active traZODone (DESYREL) 50 MG tablet Take 50 mg by mouth nightly. active Allergies Allergen Reaction Severity Comment Documented Date Source Statu s IODINATED CONTRAST MEDIA UNKNOWN/PATIENT AND FAMILY UNABLE TO DEFINE 09/24/2024 [facility] active SULFA ANTIBIOTICS ANAPHYLAXIS 07/25/2006 [facility] active Problems Problem Status Onset Date Problem Type Date of Resoluti on Source Lichen sclerosus active 2024-11-19 ProblemAct [facility] Insomnia active 2024-11-19 ProblemAct [facility] Hyperlipidemia active 2024-11-19 ProblemAct [facility] PARUL (obstructive sleep apnea) active 2024-11-19 ProblemAct [facility] Seasonal allergies active 2024-11-19 ProblemAct [facility] Muscle spasm active 2024-11-19 ProblemAct [facility] Immunizations Vaccine Date Source Lot Number Status Influenza Virus Trivalent Sp lit Vaccine (MDV) IM 03/03/2022 [facility] [id number] completed Influenza Virus Trivalent Sp lit Vaccine (MDV) IM 03/03/2022 [facility] [id number] completed Tdap 01/13/2022 [facility] [id number] completed Tdap 01/13/2022 [facility] [id number] completed Influenza Virus Trivalent Sp lit Vaccine (MDV) IM 01/10/2019 [facility] [id number] completed Influenza Virus Trivalent Sp lit Vaccine (MDV) IM 01/10/2019 [facility] [id number] completed Zoster Vaccine Recombinant (Shingrix) 11/03/2018 [facility] [id number] completed Zoster Vaccine Recombinant (Shingrix) 11/03/2018 [facility] [id number] completed Influenza Virus Trivalent Sp lit Vaccine (MDV) IM 02/20/2018 [facility] [id number] completed Influenza Virus Trivalent Sp lit Vaccine (MDV) IM 02/20/2018 [facility] [id number] completed Influenza Virus Trivalent Sp lit Vaccine (MDV) IM 04/04/2017 [facility] UNK completed Influenza Virus Trivalent Sp lit Vaccine (MDV) IM 04/04/2017 [facility] UNK completed Influenza Virus Trivalent Sp lit Vaccine (MDV) IM 04/26/2016 [facility] [id number] completed Influenza Virus Trivalent Sp lit Vaccine (MDV) IM 04/26/2016 [facility] [id number] completed Influenza Virus Trivalent Sp lit Vaccine (MDV) IM 04/23/2015 [facility] [id number] completed Influenza Virus Trivalent Sp lit Vaccine (MDV) IM 04/23/2015 [facility] [id number] completed Influenza Virus Trivalent Sp lit Vaccine (MDV) IM 03/05/2014 [facility] [id number] completed Influenza Virus Trivalent Sp lit Vaccine (MDV) IM 03/05/2014 [facility] [id number] completed Influenza Virus Trivalent Sp lit Vaccine (MDV) IM 07/04/2013 [facility] [id number] completed Influenza Virus Trivalent Sp lit Vaccine (MDV) IM 07/04/2013 [facility] [id number] completed Pneumococcal Polysaccharide 23-Valent 07/04/2013 [facility] [id number] completed Pneumococcal Polysaccharide 23-Valent 07/04/2013 [facility] [id number] completed Influenza Virus Trivalent Sp lit Vaccine (MDV) IM 02/16/2012 [facility] [id number] completed Influenza Virus Trivalent Sp lit Vaccine (MDV) IM 02/16/2012 [facility] [id number] completed Tdap 02/16/2012 [facility] [id number] completed Tdap 02/16/2012 [facility] [id number] completed Td, Unspecified 07/07/2004 [facility] UNK completed Td, Unspecified 07/07/2004 [facility] UNK completed Pneumococcal Polysaccharide 23-Valent 04/13/2001 [facility] UNK completed Pneumococcal Polysaccharide 23-Valent 04/13/2001 [facility] UNK completed Encounters Encounter Type Encounter Reason Primary Diagnosis Location Date [facility] 01/25/2025 [facility] 12/26/2024 Ambulatory [place] [facility] 12/13/2024 [address] [facility] 11/28/2024 Ambulatory Hearing Loss Hearing Loss [facility] 11/19/2024 Ambulatory [facility] 11/19/2024 Care Team Organization Name Specialty Phone Email Start Date End Da kierra [place] [employer] [facility] Rachel Vaughan Primary Care 11/19/2024 [place] [employer] [facility] Rachel Vaughan Primary Care 11/19/2024 [place] [employer] 11/16/2024
--- OUTSIDE RECORDS SUMMARY | 2025-01-28 12:42 | XMS_ITS | Clinical Summary ---
Author Organization [facility] Address [address] [place] [address] Care Team Providers Care Data Architect Manager Name Role Phone Rachel Vaughan MD Primary Care Provider [phone] Allergies Active Allergy Reactions Criticality Noted Date Comments Iodinated Contrast Media Unknown/Patient and Family Unable to Define Medium 09/24/2024 Sulfa Antibiotics Anaphylaxis High 07/25/2006 Medications pravastatin (PRAVACHOL) 40 MG tablet Take 40 mg by mouth nightly. Active traZODone (DESYREL) 50 MG tablet Take 50 mg by mouth nightly. Active Active Problems Problem Noted Date Diagnosed Date Hyperlipidemia 11/19/2024 Insomnia 11/19/2024 Lichen sclerosus 11/19/2024 Muscle spasm 11/19/2024 PARUL (obstructive sleep apnea) 11/19/2024 Seasonal allergies 11/19/2024 Encounters Date Type Department Care Team Description 01/25/2025 8:00 AM EDT Clinical Support [facility] [address] [phone] Mai Cassidy Au.D 12/26/2024 10:00 AM EDT Clinical Support [facility] [address] [phone] Mai Cassidy Au.D 12/13/2024 10:30 AM EDT Clinical Support [facility] [address] [phone] Mai Cassidy Au.D 11/28/2024 11:00 AM EDT Clinical Support [facility] [address] [place] [phone] Mai Cassidy Au.D 11/19/2024 8:30 AM EDT Clinical Support [facility] [address] [place] [phone] Jhonathan Bonilla MD Sensorineural hearing loss (SNHL) of left ear with unrestricted hearing of right ear (Primary Dx); Meniere's Disease, left (Probable) 11/19/2024 7:45 AM EDT Clinical Support [facility] [address] [place] [phone] Mai Cassidy Au.D Sensorineural hearing loss (SNHL) of left ear with unrestricted hearing of right ear (Primary Dx); Tinnitus of both ears; Dizziness 11/16/2024 Transcribe Orders [facility] [address] [place] [address] Jhonathan Bonilla MD Sudden idiopathic hearing loss, unspecified laterality (Primary Dx) from Last 3 Months Immunizations Immunization Administration Dates Next Due Influenza Virus Trivalent Sp lit Vaccine (MDV) IM 03/03/2022,01/10/2019,02/20/2018,04/04,04/26/2016,04/23/2015,03/05/2014 ,07/04/2013,02/16/2012 Pneumococcal Polysaccharide 23-Valent 07/04/2013 ,04/13/2001 Td, Unspecified 07/07/2004 Tdap 01/13/2022,02/16/2012 Zoster Vaccine Recombinant (Shingrix) 11/03/2018 Social History Tobacco Use Types Packs/Day Years [...] on file Sexual Orientation Not on file Last Filed Vital Signs Vital Sign Reading Time Taken Comments Blood Pressure - - Pulse - - Temperature - - Respiratory Rate - - Oxygen Saturation - - Inhaled Oxygen Concentration - - Weight 52.2 kg (115 lb) 11/19/2024 8:21 AM EDT Height 160 cm (5' 3 ) 11/19/2024 8:21 AM EDT Body Mass Index 20.37 11/19/2024 8:21 AM EDT Plan of Treatment Upcoming Encounters Date Type Department Care Team (Late st Contact Info) Description 02/13/2025 11:30 AM EDT Clinical Support [facility] [place] [address] [facility] [place] [phone] Mai Cassidy Au.D [address] [place] [phone] Health Maintenance Due Date Last Done Comments Advance Care Planning 1955 Hepatitis C Virus Screening 1955 Mammogram 1997 Colonoscopy 2002 Pneumococcal Vaccines 50+ (2 of 2 - PCV) 07/04/2014 07/04/2013, 04/13/2001 Zoster (Shingles) Vaccine (2 of 2) 12/29/2018 11/03/2018 DXA Bone Density (Females,Ages 65 and older) 2022 Influenza Vaccine 12/07/2024 03/03/2022, , 02/20/2018, Additional history exists COVID-19 Vaccine ( - 2024- season) 2025 04/09/2021, 08/31/2020, 08/03/2020 DTaP/Tdap/Td Vaccines (3 - Td or Tdap) 01/14/2032 01/13/2022, 02/16/2012, 07/07/2004 RSV Vaccine 60 years and older and Patients (1 - 1-dose 75+ series) 2032 Hepatitis B Vaccines Aged Out No long er eligible based on patient's age to complete this topic Procedures Procedure Name Priority Date/Time Associated Diagnosis Comments BASIC COMPREHENSIVE AU Routine 11/19/2024 7:45 AM EDT Sensorineural hearing loss (SNHL) of left ear with unrestricted hearing of right ear Tinnitus of both ears Dizziness BASIC COMPREHENSIVE AU Routine 11/19/2024 7:45 AM EDT Sensorineural hearing loss (SNHL) of left ear with unrestricted hearing of right ear Tinnitus of both ears Dizziness from Last 3 Months Results * BASIC COMPREHENSIVE AU (11/19/2024 7:45 AM EDT) Narrative Mai Cassidy Au.D - 11/19/2024 7:45 AM EDT Mai Uribecachorrokatyagarfield Chantel.D 11/19/2024 8:11 AM Procedure Note Chantel Crane.D - 11/19/2024 7:45 AM EDT Images from the original note were not included. us Jhonathan Bonilla MD AMB ORDERABLE PERFORMABLE Fin al Result from Last 3 Months Insurance MEDICARE PART A & B [facility] SUPPLEMENT ONLY [facility] MEDICARE Care Teams Data Architect Manager Relationship Specialty Start Date End Date Rachel Vaughan MD [address] [place] [address] [place] [address] PCP - General Internal Medicine 11/19/24
== END 2025-01-28 10:55 | disposition home or self-care (01) ==
LOC: HO.ENCR 10:24
PROVIDERS: PCP Internal Medicine; Visit Provider Internal Medicine Endocrinology, Diabetes & Metabolism
DX: M81.0 Age-related osteoporosis without current pathological fracture (principal)
CPT/HCPCS: 99213

== ENCOUNTER → 2025-01-28 10:23 | Outpatient (BNVA) | payer MEDICARE, OTHER, SELFPAY | PROVIDERS: PCP Internal Medicine; Visit Provider Internal Medicine Endocrinology, Diabetes & Metabolism | DX: M81.0 Age-related osteoporosis without current pathological fracture (principal); Z82.62 Family history of osteoporosis | CPT/HCPCS: 99212 ==

== ENCOUNTER 2025-03-20 07:37 | Outpatient (REF) | payer MEDICARE, OTHER, SELFPAY ==
--- OUTSIDE RECORDS SUMMARY | 2025-03-20 07:40 | XMS_ITS | Clinical Summary ---
Author Organization [address] Address [address] [place] [phone] Phone Care Team Providers Care Drywall Stripper Helper Name Role Phone Rachel Vaughan MD Primary Care Provider [phone] Allergies Active Allergy Reactions Criticality Noted Date [...] Comments OTHER SURGICAL HISTORY age 17 PROCEDURE: [place] OPEN [place] NASAL FX W/CONCOMITANT OPTX FXD SEPTUM OTHER SURGICAL HISTORY age 30 PROCEDURE: [place] UNLISTED LAPAROSCOPY PROCEDURE UTERUS; COMMENT: Fertility BAHENA OTHER SURGICAL HISTORY PROCEDURE: ARTHROSCOPY PROCEDURE NEC; COMMENT: Jaw for TMJ BREAST BIOPSY PROCEDURE: CA BX BREAST NEEDLE CORE W/O IMAGING GUIDANCE SPX; COMMENT: normal right OTHER SURGICAL HISTORY PROCEDURE: [place] EXCIMER LASER TX PSORIASIS TOT AREA <250 [...] SCC, neuropathy- 90 Maternal Grandfather (Age 50's) [place] Maternal Grandmother (Age 50's) CHF Mother ?ME, HTN, Chol, TKR, Phemphgous-bullous Paternal Grandmother CIRRHOS [...] Health Maintenance Due Date Last Done Comments Colorectal Cancer Screening: Colonoscopy 1957 Cervical Cancer Screening: HPV 1978 Pneumococcal Vaccine: 50+ Years (2 of 2 - PCV) 07/04/2014 07/04/2013, 04/13/2001 Zoster Vaccines (2 of 2) 12/29/2018 11/03/2018 Cholesterol Screening (Lipid Panel) 04/17/2022 Falls Risk Assessment 04/17/2022 Hepatitis C Screening 04/17/2022 Hypertension/CHF/CAD Annual BMP Blood Test 04/17/2022 Medicare Annual Wellness Visit 04/17/2022 Osteoporosis Screening (Bone Density Screening) 04/17/2022 Social Influencers of Health Screening 04/17/2022 Depression Screening 05/09/2024 COVID-19 Vaccine ( - season) 2025 04/09/2021, 08/31/2020, 08/03/2020 Influenza Vaccine [...] is recommended in 1 year. Mammo Location: [facility], [address] [place] [address], [address], . -------- FINAL REPORT -------- Dictated By: Mei Culver Dictated Date: 03/20/2024 16:38 ET Assigned Physician: Mei Culver Reviewed and Electronically Signed By: Mei Culver Signed Date: 03/20/2024 16:41 ET Workstation ID: [id number] Transcribed By: Self Edit Transcribed Date: 03/20/2024 [...] is recommended in 1 year. Mammo Location: [facility], [address] [place] [address], [address], . -------- FINAL REPORT -------- Dictated By: Mei Culver Dictated Date: 03/20/2024 16:38 ET Assigned Physician: Mei Culver Reviewed and Electronically Signed By: Mei Culver Signed Date: 03/20/2024 16:41 ET Workstation ID: [id number] Transcribed By: Self Edit Transcribed Date: 03/20/2024 16:38 ET Rachel Vaughan MD IMG BI PROCEDURES Final Result from Last 3 Months or Most Recently Relevant to Health Maintenance Insurance MEDICARE ON LICENSE OF [facility] Care Teams Drywall Stripper Helper Relationship Specialty Start Date End Date Rachel Vaughan MD [address] [place] [phone] PCP - General Internal Medicine 03/24/15
--- OUTSIDE RECORDS SUMMARY | 2025-03-20 07:40 | XMS_ITS | Clinical Summary ---
Author Organization [facility] Address [address] [place] [address] Care Team Providers Care Crosstie Inspector Name Role Phone Rachel Vaughan MD Primary Care Provider [phone] Allergies Active Allergy Reactions Criticality Noted Date [...] Encounters Date Type Department Care Team Description 02/13/2025 11:30 AM EDT Clinical Support [facility] [address] [phone] Mai Cassidy Au.D 01/25/2025 8:00 AM EDT Clinical Support [facility] [address] [phone] Mai Cassidy Au.D 12/26/2024 10:00 AM EDT Clinical Support [facility] [address] [phone] Mai Cassidy Au.D from Last 3 Months Immunizations Immunization Administration [...] 11/19/2024 8:21 AM EDT Plan of Treatment Health Maintenance [...] Additional history exists COVID-19 Vaccine ( - season) 2025 04/09/2021, 08/31/2020, 08/03/2020 DTaP/Tdap/Td Vaccines (3 - Td or Tdap) 01/14/2032 01/13/2022, 02/16/2012, 07/07/2004 RSV Vaccine 50 years and older and Patients (1 - 1-dose 75+ series) 2032 Hepatitis B Vaccines Aged Out No long er eligible based on patient's age to complete this topic Insurance MEDICARE PART A & B [facility] SUPPLEMENT ONLY [facility] MEDICARE Care Teams Crosstie Inspector Relationship Specialty Start Date End Date Rachel Vaughan MD [address] [place] [address] [place] [address] PCP - General Internal Medicine 11/19/24
[2025-03-20 11:49] LABS: MANUAL DIFF FLAG NO
[2025-03-20 12:09] LABS: Hematocrit 39.7 % (37.0-47.0); Hemoglobin 13.0 g/dl (12.0-16.0); Imm Gran Abs Auto 0.03 X10*3/uL (0.00-0.03); Imm Gran Pct Auto 0.7 % (0.0-0.4); Lymphocytes Absolute Auto 1.5 X10*3/uL (1.2-4.9); Mean Corpuscular HGB Conc 32.7 g/dl (31.0-35.0); Mean Corpuscular Hemoglobin 29.4 pg (27.0-33.0); Mean Corpuscular Volume 89.8 fL (80.0-98.0); NRBC Abs Auto 0.000 X10*3/uL (0.0-0.012); NRBC Pct Auto 0.0 /100WBC (0.0-0.2); Platelet Count 231 X10*3/uL (160-400); Red Blood Count 4.42 X10*6/uL (4.20-5.50); White Blood Count 4.5 X10*3/uL (4.8-10.8)
[2025-03-20 13:01] LABS: Alanine Aminotransferase 18 U/L (0-31); Albumin Level 4.8 g/dL (3.5-5.0); Alkaline Phosphatase 77 U/L (39-117); Anion Gap 10 (12-20); Aspartate Amino Transferase 31 U/L (5-31); Blood Urea Nitrogen 18 mg/dL (9-16); Calcium 9.1 mg/dL (8.4-10.2); Carbon Dioxide 27 mmol/L (22-29); Chloride 107 mmol/L (96-108); Cholesterol 236 mg/dL (<200); Estimated Glomerular Filt Rate > 60; HDL Cholesterol 72 mg/dL (>40); Potassium 3.8 mmol/L (3.3-5.1); Sodium 140 mmol/L (135-145); Total Protein 6.7 g/dL (6.5-8.0); Triglycerides 79 mg/dL (<150)
== END 2025-03-20 07:38 | disposition home or self-care (01) ==
LOC: HO.WFDLDS 07:37
PROVIDERS: Visit Provider Internal Medicine
DX: E78.2 Mixed hyperlipidemia (principal); M81.0 Age-related osteoporosis without current pathological fracture; K63.5 Polyp of colon; F51.01 Primary insomnia; R35.89 Other polyuria; Z13.1 Encounter for screening for diabetes mellitus
CPT/HCPCS: 36415; 80053; 80061; 83036; 84443; 85025

== ENCOUNTER 2025-03-29 09:16 | Outpatient (AMB) | payer MEDICARE, OTHER, SELFPAY ==
--- NOTE | 2025-03-29 09:27 | A.OFFPC_ITS ---
Vital Signs 03/29/25 09:29 Height 5 ft 2.3 in Weight 118 lb 6 oz BMI 21.4 BP 112/72 Blood Pressure Location Rt brachial Position Sitting Respiration 14 Pulse 69 Pulse Source Pulse Oximeter Temp 97.9 F Temp Source Oral Pulse Oximetry (%) 100 Oxygen Delivery Method Room Air Intake Visit Reasons: meds and labs Intake Note: Medication and lab follow up. Need Zolpidem 10 mg renewed. Traffic Routing Engineer Required: No Allergies Seasonal Allergies Allergy (Severe, Verified 03/29/25 09:30) congestion Sulfa (Sulfonamide Antibiotics) Allergy (Unknown, Verified 03/29/25 09:30) Unknown contrast dye Allergy (Mild, Uncoded 03/29/25 09:30) Hives Tobacco use date assessed: 03/29/25 Fall risk assessment: 1 Fall in past year (one ice, no injury) Last assessed Fall Risk: 03/29/25 Dental Screening Dental Screen Date: 03/29/25 Did you have a dental visit in the last 12 months?: Yes Did you have a dental problem in the last 6 months where you did not have access to dental care?: No Was dental information given to patient?: Patient has dentist HPI HPI Comments History of Present Illness Details 69 ear old female with a past medical hi story of lichen sclerosis, hyperlipidemia, PARUL, insomnia, seasonal allergies presenting for follow up CV: On pravastatin 40mg daily. Denies chest pain, dizziness. Last LDL up. No changes except for brand of pravastatin. PARUL: continues cpap. sees [facility] seasonal allergies: On javi as needed Insomnia: on trazodone, ambien as needed. Had marital therapist. Tried lunesta in the past Sees Dr Nunez-she has not been able to schedule since move to [place] [facility] she is on a wait list. Has lichen and needs to follow up Mammo: mar 2024, due colonoscopy [address] [facility] [address] Miner then changed to 5 years when she called to inquire. Says she always has polyps ROS CONSTITUTIONAL: Denies weight loss, fever and chills. HEENT: Denies changes in vision and hearing. RESPIRATORY: Denies SOB and cough. CV: Denies palpitations and CP GI: Denies abdominal pain, nausea, vomiting and diarrhea. : Denies dysuria and urinary frequency. MSK: Denies new myalgia and joint pain. SKIN: Denies rash and pruritus. NEUROLOGICAL: Denies headache PSYCHIATRIC: Denies recent changes in mood. PHYSICAL EXAM: GENERAL: Alert and oriented x 3. NAD EYES: EOMI. Anicteric. HENT: Moist mucous membranes. No scleral icterus. No cervical lymphadenopathy. LUNGS: Clear to auscultation bilaterally. CARDIOVASCULAR: Regular rate and rhythm. No murmur. No JVD. ABDOMEN: Soft, non-tender +bs EXTREMITIES: No edema. Non-tender. SKIN: No rashes or lesions. Warm. NEUROLOGIC: No focal neurological deficits. CN II-XII grossly intact PSYCHIATRIC: Cooperative. Appropriate mood and affect [facility] Medical History Spasm of muscle Seasonal allergies PARUL (obstructive sleep apnea) Lichen sclerosus Insomnia Hyperlipidemia Surgical History History of surgery Hx of tooth extraction History of hysterosalpingogram Hx of left breast biopsy History of nasal surgery H/O laparoscopy Hx of colonoscopy Family History Mother Autoimmune disease Heart attack HTN (hypertension) High cholesterol Cancer of skin Sister Back pain Rheumatoid arthritis Other Spinal stenosis Social History Housing: House Alcohol intake: current Patient Tobacco Use Status: Never used Tobacco e-Cigarette/Vaping Use: Never Used Second Hand Smoke Exposure: No Use of substances other than those prescribed or required for medical reasons: Yes Substance Use Type: Marijuana Substance Use Type Other:: Once a month for sleep (gummies) service: No Current occupational status: retired Cognitive needs: No Hearing needs: No Vision needs: No Questionnaire PHQ-9 Over the last 2 weeks, how often have you been bothered by any of the following problems? 1. Little interest or pleasure in doing things: not at all 2. Feeling down, depressed, or hopeless: not at all 3. Trouble falling or staying asleep, or sleeping too much: several days 4. Feeling tired or having little energy: several days 5. Poor appetite or overeating: not at all 6. Feeling bad about yourself - or that you are a failure or have let yourself o r your family down: not at all 7. Trouble concentrating on things, such as reading the newspaper or watching television: not at all 8. Moving or speaking so slowly that other people could have noticed. Or the opposite - being so fidgety or restless that you have been moving around a lot more than usual: not at all 9. Thoughts that you would be better off or of hurting yourself in some way: not at all Total score: 2 Depression Screening Interpretation: Negative Depression Screening Done: Yes 21445 - PHQ-9 Billing: Yes Source: Developed by Drs. Deshaun Harry, Umair Park nd colleagues, with an educational louis from [employer]. Thrive Questionnaire Date Thrive assessed: 03/29/25 I am a: Patient What is your living situation today?: I have a steady place to live Within the past 12 months, did the food you bought not last and you didn't have the money to get more?: Never true Within the past 12 months, did you worry whether your food would run out before you got money to buy more?: Never true Do you have trouble paying for medicines?: No Do you have trouble getting transportation to medical appointments?: No Do you have trouble paying your heating and electricity bill?: No Do you have trouble taking care of your child, family member or friend?: No Do you have trouble with day-to-day activities such as bathing, preparing meals, shopping, managing finances, etc.?: No Are you currently unemployed and looking for a job?: No Are you interested in more education?: No Please select the resources that you would like help with: None Currently or been in a relationship where the following occur: No concerns reported THRIVE Score: 0 AUDIT C Alcohol Use Questionnaire (AUDIT-C) 1. How often do you have a drink containing alcohol?: 2-3 times a week 2. How many drinks containing alcohol do you have on a typical day when you are drinking?: 1 or 2 3. How often do you have six or more drinks on one occasion?: Never Total Score: 3 STAS-7 AMB Questionnaire STAS-7 Date STAS - 7 assessed: 03/09/24 Source: Developed by Drs. Deshaun L. Yamilet Harry, Umair De Leon and colleagues, with an educational louis from [employer]. Physical exam (Primary Care) Vital Signs: Last Vital Signs Temp 97.9 F 03/29/25 09:29 Pulse 69 03/29/25 09:29 Resp 14 03/29/25 09:29 BP 112/72 03/29/25 09:29 Pulse Ox 100 03/29/25 09:29 Oxygen Delivery Method Room Air 03/29/25 09:29 BMI result Body Mass Index 21.4 Tobacco/Smoking Status: Tobacco use Status Tobacco use date assessed 03/29/25 03/29/25 09:37 Patient Tobacco Use Status Never used Tobacco 03/29/25 09:37 e-Cigarette/Vaping Use Never Used 03/29/25 09:37 PHQ-9: PHQ-9 Score PHQ-9: Total score 2 03/29/25 09:43 Depression Screening Interpretation: Negative Thrive Assessment: Date of Thrive Assessment Date Thrive assessed 03/29/25 03/29/25 09:37 Currently or been in a relationship where the following occur: No concerns reported Coding Level of Care Code Est Pt Level 4 (97763) Diagnoses Mixed hyperlipidemia E78.2 Hyperlipidemia type: mixed hyperlipidemia PARUL (obstructive sleep apnea) G47.33 Primary insomnia F51.01 Insomnia type: primary Additional Codes PHQ-9 - 57224 - PHQ-9 Billing: Yes ([id number]) Assessment & Plan Assessment & Plan (1) Hyperlipidemia: Code(s): E78.5 - Hyperlipidemia, unspecified Category: Medical Qualifiers: Hyperlipidemia type: mixed hyperlipidemia Qualified Code(s): E78.2 - Mixed hyperlipidemia (2) PARUL (obstructive sleep apnea): Code(s): G47.33 - Obstructive sleep apnea (adult) (pediatric) Category: Medical (3) Insomnia: Code(s): G47.00 - Insomnia, unspecified Category: Medical Qualifiers: Insomnia type: primary Qualified Code(s): F51.01 - Primary insomnia Plan 69 year old for follow up Interval history reviewed HLD-elevated. she will check with pharmacy to see if we can request previous broker in charge Needs referral GI, mammo and obgyn Orders: Orders MM tomosynthesis screening BI Today Z12.31 - Encounter for screening mammogram for malignant neoplasm of breast Referrals Gastroenterology Referral K63.5 - Polyp of colon [facility] Referral L90.0 - Lichen sclerosus et atrophicus
[2025-03-29 09:29] VITALS: BP 112/72; PULSE 69; RESP 14; TEMP 36.6; O2SAT 100; BMI 21.4
--- OUTSIDE RECORDS SUMMARY | 2025-03-29 09:37 | XMS_ITS | Clinical Summary ---
Author Organization [address] Address [address] [place] [phone] Phone Care Team Providers Care Automation And Controls Instructor Name Role Phone Rachel Vaughan MD Primary Care Provider [phone] Allergies Active Allergy Reactions Criticality Noted Date [...] Comments OTHER SURGICAL HISTORY age 17 PROCEDURE: [place] OPEN TX NASAL FX W/CONCOMITANT OPTX FXD SEPTUM OTHER SURGICAL HISTORY age 30 PROCEDURE: [place] UNLISTED LAPAROSCOPY PROCEDURE UTERUS; COMMENT: Fertility BAHENA OTHER SURGICAL HISTORY PROCEDURE: ARTHROSCOPY PROCEDURE NEC; COMMENT: Jaw for TMJ BREAST BIOPSY PROCEDURE: [place] BX BREAST NEEDLE CORE W/O IMAGING GUIDANCE SPX; COMMENT: normal right OTHER SURGICAL HISTORY PROCEDURE: [place] EXCIMER LASER TX PSORIASIS TOT AREA <250 [...] SCC, neuropathy- 90 Maternal Grandfather (Age 50's) [place] Maternal Grandmother (Age 50's) CHF Mother ?[place], HTN, Chol, TKR, Phemphgous-bullous Paternal Grandmother CIRRHOS [...] is recommended in 1 year. Mammo Location: [facility], [address] [place] [address], [phone], . -------- FINAL REPORT -------- Dictated By: Mei Culver Dictated Date: 03/20/2024 16:38 ET Assigned Physician: Mei Culver Reviewed and Electronically Signed By: Mei Culver Signed Date: 03/20/2024 16:41 ET Workstation ID: [id number] Transcribed By: Self Edit Transcribed Date: 03/20/2024 [...] is recommended in 1 year. Mammo Location: [facility], [address] [place] [address], [address], . -------- FINAL REPORT -------- Dictated By: Mei Culver Dictated Date: 03/20/2024 16:38 ET Assigned Physician: Mei Culver Reviewed and Electronically Signed By: Mei Culver Signed Date: 03/20/2024 16:41 ET Workstation ID: [id number] Transcribed By: Self Edit Transcribed Date: 03/20/2024 16:38 ET Rachel Vaughan MD IMG BI PROCEDURES Final Result from Last 3 Months or Most Recently Relevant to Health Maintenance Insurance MEDICARE [facility] Care Teams Automation And Controls Instructor Relationship Specialty Start Date End Date Rachel Vaughan MD [address] [place] [phone] PCP - General Internal Medicine 03/24/15
--- OUTSIDE RECORDS SUMMARY | 2025-03-29 09:37 | XMS_ITS | Clinical Summary ---
Author Organization [facility] Address [address] [place] [address] Care Team Providers Care Storeroom Supervisor Name Role Phone Rachel Vaughan MD Primary Care Provider [phone] Allergies Active Allergy Reactions Criticality Noted Date [...] Description 02/13/2025 11:30 AM EDT Clinical Support [facility] [address] [phone] Mai Cassidy Au.D 01/25/2025 8:00 AM EDT Clinical Support [facility] [address] [phone] Mai Cassidy Au.D from Last 3 Months [...] topic Insurance MEDICARE PART A & B [facility] SUPPLEMENT ONLY [facility] MEDICARE Care Teams Storeroom Supervisor Relationship Specialty Start Date End Date Rachel Vaughan MD [address] [place] [address] [place] [phone] PCP - General Internal Medicine 11/19/24
== END 2025-03-29 10:23 | disposition home or self-care (01) ==
LOC: HO.HMCFM 09:17
PROVIDERS: PCP Internal Medicine; Visit Provider Internal Medicine
DX: E78.2 Mixed hyperlipidemia (principal); G47.33 Obstructive sleep apnea (adult) (pediatric); F51.01 Primary insomnia

== ENCOUNTER → 2025-03-29 09:16 | Outpatient (BNVA) | payer MEDICARE, OTHER, SELFPAY | PROVIDERS: PCP Internal Medicine; Visit Provider Internal Medicine | DX: F51.01 Primary insomnia (principal); G47.33 Obstructive sleep apnea (adult) (pediatric); E78.2 Mixed hyperlipidemia; Z79.899 Other long term (current) drug therapy; Z13.30 Encounter for screening examination for mental health and behavioral disorders, unspecified | CPT/HCPCS: 96127; 99212 ==